=== PATIENT | male | born 1995 | race Caucasian/White ===

== ENCOUNTER 2017-03-02 10:49 | Emergency (ER) | payer OTHER ==
[~2017-03-02] VITALS: Ht 167.6 cm; Wt 60.8 kg
[~2017-03-02 10:49] MED LIST: ULTRAM50 MG PO
[2017-03-02] MEDS ORDERED: PROPRANOLOL HCL20 MG PO (11:09)
== END 2017-03-02 12:40 | disposition home or self-care (01) ==
LOC: ED 10:49
DX: F32.9 Major depressive disorder, single episode, unspecified (principal); Z00.8 Encounter for other general examination
CPT/HCPCS: 80053; 80176; 81001; 84443; 85025; 99283; G0480

== ENCOUNTER → 2017-03-09 | Emergency (ER) | payer OTHER ==
[~2017-03-09] VITALS: Ht 167.6 cm; Wt 60.8 kg
[~2017-03-09] MED LIST changes: +ACID CONTROL150 MG PO; +BENADRYL25 MG PO; +CLONIDINE HCL0.1 M1 PO; +COL-RITE100 MG PO; +KETOROLAC TROME10 MG PO; +LATUDA40 MG PO; +LORAZEPAM0.5 MG PO; +PAIN & FEVER325 MG PO; +PROPRANOLOL HCL20 MG PO
== END ==
LOC: ED 16:55
DX: Z00.00 Encounter for general adult medical examination without abnormal findings (principal)
CPT/HCPCS: 80053; 80176; 81001; 84443; 85025; 99283; G0480

== ENCOUNTER 2017-07-02 21:25 | Emergency (ER) | payer OTHER ==
[~2017-07-02] VITALS: Ht 167.6 cm; Wt 72.6 kg
[~2017-07-02 21:25] MED LIST changes: -ACID CONTROL150 MG PO; -BENADRYL25 MG PO; -CLONIDINE HCL0.1 M1 PO; -COL-RITE100 MG PO; -KETOROLAC TROME10 MG PO; -LATUDA40 MG PO; -LORAZEPAM0.5 MG PO; -PAIN & FEVER325 MG PO
== END 2017-07-03 00:02 | disposition home or self-care (01) ==
LOC: ED 21:25
DX: R45.851 Suicidal ideations (principal); F32.9 Major depressive disorder, single episode, unspecified; F17.200 Nicotine dependence, unspecified, uncomplicated; Z88.8 Allergy status to other drugs, medicaments and biological substances
CPT/HCPCS: 80053; 80176; 81001; 84443; 85025; 99283; G0480

== ENCOUNTER 2017-07-07 14:48 | Emergency (ER) | payer OTHER ==
[~2017-07-07] VITALS: Ht 167.6 cm; Wt 72.6 kg
[2017-07-07] MEDS ORDERED: LORAZEPAM0.5 MG PO (15:02)
[2017-07-07] MEDS ORDERED: COL-RITE100 MG PO (15:03)
[2017-07-07] MEDS ORDERED: CLONIDINE HCL0.1 M1 PO (15:04)
[2017-07-07] MEDS ORDERED: LATUDA40 MG PO (15:05)
[2017-07-07] MEDS ORDERED: ACID CONTROL150 MG PO (15:06)
[2017-07-07] MEDS ORDERED: PAIN & FEVER325 MG PO (15:12)
[2017-07-07] MEDS ORDERED: BENADRYL25 MG PO (15:13)
[2017-07-07] MEDS ORDERED: KETOROLAC TROME10 MG PO (15:30)
== END 2017-07-07 16:36 | disposition home or self-care (01) ==
LOC: ED 14:48
DX: S90.31XA Contusion of right foot, initial encounter (principal); W22.8XXA Striking against or struck by other objects, initial encounter; F32.9 Major depressive disorder, single episode, unspecified; F17.200 Nicotine dependence, unspecified, uncomplicated; Z88.8 Allergy status to other drugs, medicaments and biological substances; Z79.899 Other long term (current) drug therapy
CPT/HCPCS: 73630; 99283

== ENCOUNTER 2017-08-24 14:07 | Emergency (ER) | payer OTHER ==
[~2017-08-24] VITALS: Ht 167.6 cm; Wt 72.6 kg
[~2017-08-24 14:07] MED LIST changes: +ACID CONTROL150 MG PO; +BENADRYL25 MG PO; +CLONIDINE HCL0.1 M1 PO; +COL-RITE100 MG PO; +KETOROLAC TROME10 MG PO; +LATUDA40 MG PO; +LORAZEPAM0.5 MG PO; +PAIN & FEVER325 MG PO
[2017-08-24] MEDS ORDERED: CLONAZEPAM1 MG PO (14:15)
[2017-08-24] MEDS ORDERED: BUSPIRONE HCL5 MG (14:16)
[2017-08-24] MEDS ORDERED: BUSPIRONE HCL5 MG PO (14:17)
[2017-08-24] MEDS ORDERED: DOK100 MG PO (14:18)
== END 2017-08-24 19:03 | disposition home or self-care (01) ==
LOC: ED 14:07
DX: Z00.00 Encounter for general adult medical examination without abnormal findings (principal); F32.9 Major depressive disorder, single episode, unspecified; F17.200 Nicotine dependence, unspecified, uncomplicated; Z88.8 Allergy status to other drugs, medicaments and biological substances; Z79.899 Other long term (current) drug therapy
CPT/HCPCS: 80053; 80176; 81001; 84443; 85025; 99284; G0480

== ENCOUNTER 2017-09-21 18:23 | Emergency (ER) | payer OTHER ==
[~2017-09-21] VITALS: Ht 167.6 cm; Wt 79.8 kg
[~2017-09-21 18:23] MED LIST changes: +BUSPIRONE HCL5 MG; +BUSPIRONE HCL5 MG PO; +CLONAZEPAM1 MG PO; +DOK100 MG PO
[2017-09-21] MEDS ORDERED: COLACE100 MG PO (19:10)
[2017-09-21] MEDS ORDERED: ANUSOL-HC30 GM PR (19:10)
== END 2017-09-21 19:16 | disposition home or self-care (01) ==
LOC: ED 18:23
DX: K60.2 Anal fissure, unspecified (principal); F32.9 Major depressive disorder, single episode, unspecified; F17.200 Nicotine dependence, unspecified, uncomplicated; Z88.8 Allergy status to other drugs, medicaments and biological substances; Z79.899 Other long term (current) drug therapy
CPT/HCPCS: 99283

== ENCOUNTER 2017-11-03 17:24 | Emergency (ER) | payer OTHER ==
[~2017-11-03] VITALS: Ht 167.6 cm; Wt 79.8 kg
[~2017-11-03 17:24] MED LIST changes: +ANUSOL-HC30 GM PR; +COLACE100 MG PO
[2017-11-03] MEDS ORDERED: NORCO 5-325 TA1 EACH PO (18:32)
[2017-11-03] MEDS ORDERED: ZOFRAN ODT4 MG PO (18:32)
== END 2017-11-03 18:53 | disposition home or self-care (01) ==
LOC: ED 17:24
DX: R10.11 Right upper quadrant pain (principal); Z79.899 Other long term (current) drug therapy
CPT/HCPCS: 76705; 80053; 81001; 83690; 85025; 96361; 96374; 96375; 99284; J1170; J2405; J7120

== ENCOUNTER 2018-07-07 02:57 | Emergency (ER) | payer OTHER ==
[~2018-07-07] VITALS: Ht 167.6 cm; Wt 72.6 kg
[~2018-07-07 02:57] MED LIST changes: +DESVENLAFAXINE100 M3 PO; +DOXYCYCLINE HY100 MG PO; +IBUPROFEN600 MG PO; +NORCO 5-325 TA1 EACH PO; +PROMETHAZINE V118 ML PO; +TESSALON PERLE100 MG PO; +ZOFRAN ODT4 MG PO
--- OUTSIDE RECORDS SUMMARY | 2018-07-07 03:00 | XMS ---
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 Security Events currently on file CRITERIA MET - [facility] – [place] - [facility] PAULINE JACOBS Nurse Practitioner: 09/22/2017-Current PHONE: Unknown JESSICA HEARD Primary Care Current PHONE: [phone] [facility] Current PHONE: [phone] PAULINE JACOBS Primary Care Current PHONE: [phone] Guidelines Source: [facility] [place] Guidelines Date: 02/15/2018 Other Information: Currently enrolled in mental health services with [employer].\T\nbsp; If seen in the ED, please call [phone].\T\nbsp; Prescription Medications go through [place] [phone]. Care History Medical/Surgical 12/13/2017 [facility] - PATIENT CANCELLED LAST TWO APTS WITH PCP PAULINE JACOBS ON 11/29 AND 12/09. PATIENT HAS NOT FOLLOWED UP WITH PCP SINCE 11/15. - [facility] REFERRED PATIENT TO [facility] CASE MANAGEMENT TEAM. - PATIENT IS NOT FOLLOWING UP WITH PCP. - PATIENT HAS A LONG HX OF CHRONIC PAIN MANAGEMENT. 09/22/2017 [facility] - Patient is currently established with [facility]. If patient is seen in the ED during business hours. Please contact CHWs at [facility]. Care Recommendation: This patient has had 5 or more Emergency Department visits in the last 12 months.\T\nbsp; Patient requires education on the scope and purpose of the ED as an acute care provider not a Primary Care Provider and should not be utilized for chronic conditions.\T\nbsp; These are guidelines and the provider should exercise clinical judgment when providing care. E.D. VISIT COUNT (12 MO.) 7 [facility] TOTAL 7 NOTE: Visits indicate total known visits. 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 - Allergy status to other drugs, medicaments and biological substances status - Nicotine dependence, unspecified, uncomplicated - Cough - Major depressive disorder, single episode, unspecified - Bronchitis, not specified as acute or chronic 11/03/2017 17:24 [facility] TYPE: Emergency COMPLAINT: - ABD PAIN/ NON INJURY DIAGNOSES: - Other residential (current) drug therapy - Right upper quadrant pain 09/21/2017 18:23 [facility] TYPE: Emergency COMPLAINT: - BLOOD IN STOOL DIAGNOSES: - Anal fissure, unspecified - Allergy status to other drugs, medicaments and biological substances status - Major depressive disorder, single episode, unspecified - Melena - Nicotine dependence, unspecified, uncomplicated - Other residential (current) drug therapy 08/24/2017 14:07 [facility] TYPE: Emergency COMPLAINT: - MEDICAL CLEARANCE DIAGNOSES: - Major depressive disorder, single episode, unspecified - 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 [place] TYPE: Emergency COMPLAINT: - EXTREMITY PAIN/INJURY DIAGNOSES: - Other residential (current) drug therapy - Pain in right foot - Major depressive disorder, single episode, unspecified - Contusion of right foot, initial encounter - Allergy status to other drugs, medicaments and biological substances status - Nicotine dependence, unspecified, uncomplicated - Striking against or struck by other objects, initial encounter INPATIENT VISIT TRACKING (12 MO.) No inpatient visits to display in this time frame [email or web address]
--- NOTE | 2018-07-07 22:59 | EKG ---
[facility] [address] [place] [address] Signed Normal sinus rhythm Normal ECG No previous ECGs available Confirmed by EVITA RUSSO MD ([id number] on 07/07/2018 10:59:39 PM Electronically Signed By: EVITA RUSSO MD 07/07/18 2259 PATIENT NAME: FAVIOLA MCKAY Electrocardiogram DATE OF : [birth year] PHYSICIAN: EVITA RUSSO MD REPORT #: [id number] REPORT IS CONFIDENTIAL AND NOT TO BE RELEASED WITHOUT AUTHORIZATION
== END 2018-07-07 05:27 | disposition home or self-care (01) ==
LOC: ED 02:57
DX: R07.9 Chest pain, unspecified (principal); F17.200 Nicotine dependence, unspecified, uncomplicated; Z88.8 Allergy status to other drugs, medicaments and biological substances
CPT/HCPCS: 71045; 80053; 81001; 85025; 93005; 93010; 99285-25

== ENCOUNTER 2023-10-14 19:38 | Emergency (ER) | payer MEDICARE, OTHER ==
[~2023-10-14] VITALS: Ht 167.6 cm; Wt 62.0 kg
[2023-10-14] MEDS ORDERED: CLONIDINE HCL0.2 MG PO (19:54)
[2023-10-14] MEDS ORDERED: FAMOTIDINE 20 MG/ 2 ML VIAL IV ONE (20:00)
[2023-10-14] MEDS ORDERED: ondansetron HCL 4 MG/2 ML VIAL IV ONE (20:00)
[2023-10-14 20:05] LABS: BASOPHILS 0.2 % (0-2); HEMATOCRIT 46.7 % (35.0-50.0); HEMOGLOBIN 16.3 g/dL (12.0-18.0); LYMPHOCYTES 12.3 % (24-44); MCV 85.5 fl (81-99); MONOCYTES 7.8 % (0-12); NEUTROPHILS 78.7 % (39-80); PLATELET COUNT 236 K/uL (140-440); RBC 5.46 M/ul (4.3-5.7); RDW 13.3 (10.5-15.0)
[2023-10-14 20:20] LABS: BILIRUBIN, URINE NEGATIVE (negative); BLOOD/HGB, URINE NEGATIVE (Negative); KETONE, URINE NEGATIVE (Negative); LEUK ESTERASE, URINE NEGATIVE (negative); NITRITE, URINE NEGATIVE (negative)
[2023-10-14 20:28] LABS: MAGNESIUM 1.7 mg/dL (1.8-2.4); TSH, 3RD GENERATION 2.023 uIU/mL (0.358-3.740)
[2023-10-14] MEDS ORDERED: LACTATED RINGER'S 1,000 ML IV ONE (20:30)
[2023-10-14 20:33] LABS: AMPHETAMINES, URINE NEGATIVE (NEGATIVE); BARBITURATES, URINE NEGATIVE (NEGATIVE); BENZODIAZEPINE, URINE NEGATIVE (NEGATIVE); BUPRENORPHINE, URINE NEGATIVE (NEGATIVE); CANNABINOID, URINE NEGATIVE (NEGATIVE); COCAINE, URINE NEGATIVE (NEGATIVE); ECSTASY, URINE NEGATIVE (NEGATIVE); FENTANYL, URINE NEGATIVE (NEGATIVE); METHADONE, URINE NEGATIVE (NEGATIVE); OPIATES, URINE NEGATIVE (NEGATIVE); OXYCODONE, URINE NEGATIVE (NEGATIVE); PHENCYCLIDINE, URINE NEGATIVE (NEGATIVE)
[2023-10-14 22:01] LABS: ALBUMIN 4.3 g/dL (3.4-5.0); ALBUMIN/GLOBULIN RATIO 1.48 (1.1-2.4); ANION GAP 15.4 (7-21); BILIRUBIN, TOTAL 1.3 ng/dL (0.2-1.0); BUN/CREATININE RATIO 13.15 (6.0-28.6); CALCIUM 9.3 mg/dL (8.5-10.1); CREATININE, SERUM 1.14 mg/dL (0.70-1.30); POTASSIUM 3.4 mmol/L (3.5-5.1); PROTEIN, TOTAL 7.2 g/dL (6.4-8.2)
[2023-10-14] MEDS ORDERED: OMEPRAZOLE20 MG PO (22:11)
[2023-10-14 22:23] VITALS: BP 128/75
== END 2023-10-14 22:24 | disposition home or self-care (01) ==
LOC: ED 19:38
PROVIDERS: Internal Medicine
DX: K21.9 Gastro-esophageal reflux disease without esophagitis (principal); A08.4 Viral intestinal infection, unspecified; F17.200 Nicotine dependence, unspecified, uncomplicated; Z88.8 Allergy status to other drugs, medicaments and biological substances; Z79.899 Other long term (current) drug therapy
CPT/HCPCS: 36415; 80053; 80307; 81003; 83690; 83735; 84443; 85025; 96361; 96374; 96375; 99285-25; J2405; J7121

== ENCOUNTER 2024-11-22 20:40 | Emergency (ER) | payer MEDICARE, OTHER ==
[~2024-11-22] VITALS: Ht 167.6 cm; Wt 68.0 kg
[~2024-11-22 20:40] MED LIST changes: +CLONIDINE HCL0.2 MG PO; +OMEPRAZOLE20 MG PO
[2024-11-22 21:37] LABS: BASOPHILS 0.4 % (0.2-1.2); EOSINOPHILS 0.3 % (0.8-7.0); LYMPHOCYTES 4.0 % (21.8-53.1); MCH 28.8 PG (25.7-32.2); MCHC 34.0 g/dL (32.3-36.5); MCV 84.6 fL (79.0-92.2); MONOCYTES 9.8 % (5.3-12.2); NEUTROPHILS 84.9 % (34.0-67.9); RBC 5.52 M/uL (4.63-6.08)
[2024-11-22] MEDS ORDERED: SODIUM CHLORIDE 0.9% 500 ML IV ONE (21:45)
[2024-11-22 21:53] LABS: ALT (SGPT) 21.0 U/L (14-59); AST (SGOT) 3.0 U/L (15-37); GLOMERULAR FILTRATION RATE,EST 71.0 mL/min (>60); PROTEIN, TOTAL 7.6 g/dL (6.4-8.2); UREA NITROGEN 13.0 mg/dL (7-18)
[2024-11-22] MEDS ORDERED: SODIUM CHLORIDE 0.9% 1,000 ML IV SCH (23:45)
[2024-11-23 00:24] LABS: BLOOD/HGB, URINE NEGATIVE (Negative); KETONE, URINE SMALL (Negative); LEUK ESTERASE, URINE NEGATIVE (negative); NITRITE, URINE NEGATIVE (negative)
[2024-11-23 00:29] LABS: BACTERIA, URINE RARE /hpf (negative); CASTS, URINE NONE SEEN \\lpf; CRYSTALS, URINE NONE SEEN (0-1+); EPITHELIAL CELLS, URINE SQUAMOUS 1+ /lpf (0-1+); REFLEX CULTURE, URINE No (No)
[2024-11-23] MEDS ORDERED: BENZONATATE100 MG PO (00:54)
[2024-11-23] MEDS ORDERED: ONDANSETRON ODT8 MG PO (00:54)
[2024-11-23] MEDS ORDERED: ONDANSETRON 4 MG HOME.PACK SL ONE (01:00)
[2024-11-23 01:19] VITALS: BP 114/72
== END 2024-11-23 01:20 | disposition home or self-care (01) ==
LOC: ED 20:40
PROVIDERS: Emergency Medicine
DX: R10.31 Right lower quadrant pain (principal); D72.829 Elevated white blood cell count, unspecified; F17.200 Nicotine dependence, unspecified, uncomplicated; Z88.5 Allergy status to narcotic agent; Z79.899 Other long term (current) drug therapy
CPT/HCPCS: 36415; 74177; 80053; 81001; 83735; 85025; 96361; 96374; 99284-25; A9270; J2405; J7040; Q9967